=== PATIENT | female | born 2000 | race Caucasian/White ===

== ENCOUNTER 2020-11-11 01:46 | Emergency (ER) | payer OTHER ==
[~2020-11-11 01:46] MED LIST: VISTARIL 50 MG50 MG PO
[2020-11-11] MEDS ORDERED: IBUPROFEN800 MG PO (03:09)
[2020-11-11] MEDS ORDERED: ONDANSETRON ODT4 MG SL (03:09)
[2020-11-11] MEDS ORDERED: IMITREX50 MG PO (03:09)
== END 2020-11-11 03:30 | disposition home or self-care (01) ==
LOC: ER1 01:46
DX: S16.1XXA Strain of muscle, fascia and tendon at neck level, initial encounter (principal); G43.909 Migraine, unspecified, not intractable, without status migrainosus; X58.XXXA Exposure to other specified factors, initial encounter
CPT/HCPCS: 99283; J3030

== ENCOUNTER 2021-03-12 16:08 | Emergency (ER) | payer OTHER ==
[~2021-03-12 16:08] MED LIST changes: +IBUPROFEN800 MG PO; +IMITREX50 MG PO; +ONDANSETRON ODT4 MG SL
[2021-03-13] MEDS ORDERED: BACTRIM DS TAB1 EACH PO (20:28)
[2021-03-13] MEDS ORDERED: CEPHALEXIN500 M1 PO (20:28)
== END 2021-03-12 16:18 | disposition left against medical advice (07) ==
LOC: ER1 16:08
DX: Z53.21 Procedure and treatment not carried out due to patient leaving prior to being seen by health care provider (principal)

== ENCOUNTER 2021-03-13 19:56 | Emergency (ER) | payer OTHER ==
[2021-03-13] MEDS ORDERED: BACTRIM DS TAB1 EACH PO (20:28)
[2021-03-13] MEDS ORDERED: CEPHALEXIN500 M1 PO (20:28)
== END 2021-03-13 21:00 | disposition home or self-care (01) ==
LOC: ER1 19:56
DX: S90.812A Abrasion, left foot, initial encounter (principal); S90.811A Abrasion, right foot, initial encounter; L03.116 Cellulitis of left lower limb; Z23 Encounter for immunization; W22.8XXA Striking against or struck by other objects, initial encounter; Y93.21 Activity, ice skating
CPT/HCPCS: 90715; 99283